=== PATIENT | female | born 1965 | race Two or more races ===

== ENCOUNTER 2019-02-28 20:59 | Emergency (ER) | payer SELFPAY ==
[~2019-02-28] VITALS: Ht 162.6 cm; Wt 66.2 kg
[~2019-02-28 20:59] MED LIST: CIPRO500 MG PO; FLAGYL500 MG ORAL; NKM
[2019-02-28 21:00] VITALS: BP 149/103
--- NOTE | 2019-02-28 21:00 | NUR ---
ED Nurse Note: Walk-in patient presents with complaints of SOB, patient is tachycardic and tachypneic. Will continue to monitor and service orders.
--- NOTE | 2019-02-28 21:14 | Emergency Room Report ---
History of Present Illness General Chief Complaint: Dyspnea/Respdistress Source: Patient, Family Member Present Illness HPI This is a 53-year-old female with a history of hypertension. She presents with chief complaint of shortness of breath and throat pain. Onset was acute and occur after eating dinner. She had rice and meat. She felt pain in her throat and became short of breath. Then she got very anxious and nervous. Now her whole body felt numb and fingers felt numb. Did not eat any fish. No nausea no vomiting. No fever chills. Nothing made it better. Nothing made it worse. Denies any other trauma. Denies any argument or stressors. Allergies: Coded Allergies: No Known Allergies (Unverified , 01/28/15) Patient History Past Medical History: see triage record, old chart reviewed, HTN Past Surgical History: other Pertinent Family History: none Social History: Denies: smoking Now: No Immunizations: other Reviewed Nursing Documentation: PMH: Agreed; PSxH: Agreed Nursing Documentation-PMH Hx Cardiac Problems: No Hx Hypertension: Yes Hx Neurological Problems: No Hx Cerebrovascular Accident: Yes - 2003 Review of Systems Eye: Denies: eye pain, blurred vision ENT: Reports: throat pain, throat swelling; Denies: ear pain, nose congestion Respiratory: Reports: shortness of breath; Denies: cough Cardiovascular: Denies: chest pain, palpitations Gastrointestinal: Denies: abdominal pain, diarrhea, nausea, vomiting Musculoskeletal: Denies: back pain, joint pain Skin: Denies: rash Neurological: Denies: headache, numbness Endocrine: Denies: increased thirst, increased urine Hematologic/Lymphatic: Denies: easy bruising All Other Systems: negative except mentioned in HPI Physical Exam Vital Signs Date Time Temp Pulse Resp B/P (MAP) Pulse Ox O2 Delivery O2 Flow Rate FiO2 02/28/19 21:00 98.4 126 42 149/103 (118) 100 Room Air Vitals with high blood pressure and tachycardia Sp02 EP Interpretation: reviewed, normal General Appearance: well appearing, no apparent distress, alert Head: normocephalic, atraumatic Eyes: bilateral eye PERRL, bilateral eye EOMI ENT: hearing grossly normal, normal pharynx, uvula midline - elongated Neck: full range of motion, supple, no meningismus Respiratory: chest non-tender, lungs clear, normal breath sounds Cardiovascular #1: regular rate, rhythm, no murmur, tachycardia Gastrointestinal: normal bowel sounds, non tender, no mass, no organomegaly, no bruit, non-distended Musculoskeletal: back normal, gait/station normal, normal range of motion Neurologic: alert, oriented x3 Psychiatric: anxious Medical Decision Making Diagnostic Impression: Primary Impression: Globus sensation Additional Impressions: Cough in adult Anxiety reaction ER Course Patient with a sensation of swelling her neck after eating. She is been coughing frequently here. I suspect that she has beginning of a viral illness. She also was very anxious when she came in. Now back to baseline and calm after Ativan. No evidence any foreign body. No evidence of any constriction or stridor. No evidence of any pneumonia. Will discharge home. Rhythm Strip Diag. Results EP Interpretation: yes Rate: 95 Rhythm: NSR, no PVC's, no ectopy Chest X-Ray Diagnostic Results Chest X-Ray Diagnostic Results : Chest X-Ray Ordered: Yes # of Views/Limited/Complete: 1 View Indication: Shortness of Breath EP Interpretation: Yes Interpretation: no consolidation, no effusion, no pneumothorax, no acute cardiopulmonary disease Impression: No acute disease Electronically Signed by: Addi Kimbrough MD CT/MRI/US Diagnostic Results CT/MRI/US Diagnostic Results : Imaging Test Ordered: CT neck Impression Read by radiologist. Negative. Last Vital Signs Date Time Temp Pulse Resp B/P (MAP) Pulse Ox O2 Delivery O2 Flow Rate FiO2 02/28/19 21:00 98.4 126 42 149/103 (118) 100 Room Air Status: improved Disposition: HOME, SELF-CARE Condition: Stable Scripts Codeine/Promethazine Hcl* (PROMETHAZINE-CODEINE SYRUP*) 118 Ml Syrup 5 ML ORAL Q6H PRN for For Cough, #120 ML 0 Refills Prov: Addi Kimbrough MD 02/28/19 Additional Instructions: Follow-up with your doctor in 7 days. Return if symptoms worsen. Addi Kimbrough MD Feb 28, 2019 21:14
[2019-02-28] MEDS ORDERED: DiphenhydrAMINE 50mg/ml Inj IVP ONE (21:15)
[2019-02-28] MEDS ORDERED: LORazepam Inj 2mg/ml 1ml IV ONE (21:15)
[2019-02-28] MEDS ORDERED: Isovue-370 150ml vial INJ PRN (21:15)
[2019-02-28] MEDS ORDERED: Albuterol ud Inhalation HHN ONE (21:15)
[2019-02-28] MEDS ORDERED: Solu-MEDROL 125mg Inj IVP ONE (21:15)
--- NOTE | 2019-02-28 21:52 | NUR ---
ED Nurse Note: Patient appears alot calmer, patient tolerated medication well and is resting comfortably with spouse at bedside.
[2019-02-28 21:56] LABS: BASOPHILS % (AUTO) 0.8 % (0.0-2.0); EOSINOPHILS % (AUTO) 2.5 % (0.0-3.0); HEMATOCRIT 41.7 % (37.0-47.0); HEMOGLOBIN 15.1 G/DL (12.0-16.0); LYMPHOCYTES % (AUTO) 46.5 % (20.0-45.0); MEAN CORPUSCULAR VOLUME 90 FL (80-99); NEUTROPHILS % (AUTO) 45.2 % (45.0-75.0); PLATELET COUNT 378 K/UL (150-450); RED BLOOD COUNT 4.63 M/UL (4.20-5.40); RED CELL DISTRIBUTION WIDTH 9.7 % (11.6-14.8); WHITE BLOOD COUNT 8.9 K/UL (4.8-10.8)
[2019-02-28 21:58] LABS: APPEARANCE,URINE CLEAR; BILIRUBIN, URINE NEGATIVE (NEGATIVE); COLOR,URINE PALE YELLOW; GLUCOSE, URINE (UA) NEGATIVE (NEGATIVE); KETONES,URINE NEGATIVE (NEGATIVE); LEUKOCYTE ESTERASE ,URINE NEGATIVE (NEGATIVE); NITRITE,URINE NEGATIVE (NEGATIVE); PH,URINE 6 (4.5-8.0); PROTEIN,URINE NEGATIVE (NEGATIVE); UROBILINOGEN,URINE NORMAL MG/DL (0.0-1.0)
[2019-02-28 22:04] LABS: ANION GAP 15 mmol/L (5-15); BLOOD UREA NITROGEN 12 mg/dL (7-18); CALCIUM 9.7 MG/DL (8.5-10.1); CARBON DIOXIDE 21 MMOL/L (21-32); CHLORIDE 110 MMOL/L (98-107); CREATININE 0.8 MG/DL (0.55-1.30); POTASSIUM 3.4 MMOL/L (3.5-5.1); SODIUM 146 MMOL/L (136-145)
--- NOTE | 2019-02-28 22:33 | NUR ---
ED Nurse Note: Patient goind down for CT of the neck.
--- NOTE | 2019-02-28 23:09 | Diagnostic Imaging Report ---
Indication: Neck pain. Technique: Continuous helical imaging of the neck was obtained transaxially from the skull base to the upper thoracic spine during intravenous administration of nonionic contrast. 2-D coronal and sagittal reformatted images were obtained. Total Dose length Product (DLP): [address] Dose Index Volume (CTDIvol): 0.25, 19.51 mGy Comparison: None Findings: Skull base structures are unremarkable. Mastoids are clear bilaterally. The visualized nasopharynx, oropharynx, and hypopharynx appears unremarkable. There is no mass or asymmetry identified. Supraglottic structures including the epiglottis and aryepiglottic folds appear normal. The larynx is unremarkable. The subglottic airway is clear. There is no lymphadenopathy. The parotid, thyroid, submandibular and sublingual glands appear unremarkable. Impression: Negative contrast-enhanced CT of the neck. [facility] has communicated the preliminary results to the Emergency Department. Their findings are largely concordant with this report. The CT scanner at [facility] is accredited by the [employer] and the scans are performed using dose optimization techniques as appropriate to a performed exam including Automatic Exposure control.
[2019-02-28] MEDS ORDERED: PROMETHAZINE-C118 M1 ORAL (23:18)
--- NOTE | 2019-02-28 23:21 | NUR ---
ED Nurse Note: Patient cleared for discharge by ERMD. Patient has no s/s of acute distress, vital signs have improved and are stable and documented. Patient ID band removed, IV removed. Patient verbalized understanding of discharge instructions. Patient departed with all belongings accompanied by .
[2019-02-28 23:25] VITALS: BP 119/60
[2019-02-28 23:31] VITALS: BP 119/60
--- NOTE | 2019-03-01 12:44 | Diagnostic Imaging Report ---
Indication: Dyspnea Comparison: None A single view chest radiograph was obtained. Findings: Cardiomediastinal appearance is within normal limits for age. The lungs are clear. Pulmonary vascularity is appropriate. The diaphragmatic contour is smooth and costophrenic angles are sharp. No pleural effusions are identified. The bones are unremarkable. Impression: No acute findings
== END 2019-02-28 23:31 | disposition home or self-care (01) ==
LOC: EMR 21:29
DX: F41.9 Anxiety disorder, unspecified (principal); R09.89 Other specified symptoms and signs involving the circulatory and respiratory systems; R05 Cough; R06.02 Shortness of breath; I10 Essential (primary) hypertension; Z86.73 Personal history of transient ischemic attack (TIA), and cerebral infarction without residual deficits
CPT/HCPCS: 36415; 70491; 71045; 80048; 81001; 81025; 83880; 84484; 85025; 94640; 94664; 96374; 96375; 99284; J1200; J2930; Q9967